=== PATIENT | female | born 1995 | race Caucasian/White ===

== ENCOUNTER 2017-11-28 11:54 | Emergency (ER) | payer OTHER ==
[~2017-11-28] VITALS: Ht 149.9 cm; Wt 49.0 kg
[2017-11-28 12:02] VITALS: Ht 149.9 cm; Wt 49.0 kg
[2017-11-28 12:25] VITALS: BP 110/62
== END 2017-11-28 12:25 | disposition home or self-care (01) ==
LOC: ED 11:54
DX: S90.562A Insect bite (nonvenomous), left ankle, initial encounter (principal); S00.83XA Contusion of other part of head, initial encounter; W57.XXXA Bitten or stung by nonvenomous insect and other nonvenomous arthropods, initial encounter; Y93.89 Activity, other specified; Y92.89 Other specified places as the place of occurrence of the external cause; Y99.8 Other external cause status

== ENCOUNTER 2018-06-10 17:20 | Emergency (ER) | payer OTHER ==
[~2018-06-10] VITALS: Ht 149.9 cm; Wt 51.8 kg
[2018-06-10 17:23] VITALS: Ht 149.9 cm; Wt 51.8 kg
[2018-06-10 19:04] VITALS: BP 133/63
== END 2018-06-10 19:04 | disposition home or self-care (01) ==
LOC: ED 17:20
DX: R21 Rash and other nonspecific skin eruption (principal); R06.00 Dyspnea, unspecified; R11.10 Vomiting, unspecified; R07.0 Pain in throat; T78.1XXA Other adverse food reactions, not elsewhere classified, initial encounter; X58.XXXA Exposure to other specified factors, initial encounter
CPT/HCPCS: J7512

== ENCOUNTER 2019-04-16 13:40 | Emergency (ER) | payer MEDICAID ==
[~2019-04-16] VITALS: Ht 149.9 cm; Wt 54.9 kg
[2019-04-16 14:34] VITALS: Ht 149.9 cm; Wt 54.9 kg
[2019-04-16 19:24] VITALS: BP 112/58
== END 2019-04-16 19:24 | disposition home or self-care (01) ==
LOC: ED 13:40
DX: J02.9 Acute pharyngitis, unspecified (principal)
CPT/HCPCS: J1100

== ENCOUNTER 2019-04-19 11:30 | Emergency (ER) | payer MEDICAID ==
[~2019-04-19] VITALS: Ht 403.9 cm; Wt 54.0 kg
[2019-04-19 11:52] VITALS: BP 116/75; Ht 403.9 cm; Wt 54.0 kg
[2019-04-19 13:13] LABS: BASOPHIL % 0.1 % (0-2); PLATELET COUNT 331 x10^3mcL (130-400); RED CELL DISTRIBUTION WIDTH 13.8 % (11.5-14.5)
== END 2019-04-19 14:06 | disposition home or self-care (01) ==
LOC: ED 11:30
PROVIDERS: Emergency Medicine
DX: J36 Peritonsillar abscess (principal); J00 Acute nasopharyngitis [common cold]
CPT/HCPCS: 86308; 87804; J0696; J7512